=== PATIENT | female | born 1990 | race Hispanic/Latino ===

== ENCOUNTER 2018-08-08 21:40 | Emergency (ER) | payer OTHER ==
[2018-08-08 22:01] VITALS: TEMP 99.2
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
[2018-08-08 23:44] VITALS: BP 130/77; O2SAT 100
== END 2018-08-08 23:44 | disposition home or self-care (01) ==
LOC: ER 21:40
DX: O20.0 Threatened abortion (principal); Z3A.08 8 weeks gestation of pregnancy

== ENCOUNTER 2018-08-28 20:05 | Emergency (ER) | payer OTHER ==
[2018-08-28 20:50] VITALS: TEMP 98.2
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
[2018-08-28] MEDS ORDERED: ACETAMINOPHEN 325 MG TAB PO ONE (20:58)
[2018-08-28 22:35] VITALS: BP 130/79; O2SAT 99
== END 2018-08-28 22:38 | disposition home or self-care (01) ==
LOC: ER 20:05
DX: O99.89 Other specified diseases and conditions complicating pregnancy, childbirth and the puerperium (principal); T74.91XA Unspecified adult maltreatment, confirmed, initial encounter; S00.03XA Contusion of scalp, initial encounter; R42 Dizziness and giddiness; Z3A.11 11 weeks gestation of pregnancy; Y04.0XXA Assault by unarmed brawl or fight, initial encounter; Y07.03 Male partner, perpetrator of maltreatment and neglect

== ENCOUNTER 2019-01-28 09:49 | Emergency (ER) | payer SELFPAY ==
[2019-01-28 10:03] VITALS: BP 122/72; TEMP 95.7; O2SAT 99
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
== END 2019-01-28 10:23 | disposition home or self-care (01) ==
LOC: ER 09:49
DX: O9A.213 Injury, poisoning and certain other consequences of external causes complicating pregnancy, third trimester (principal); S39.012A Strain of muscle, fascia and tendon of lower back, initial encounter; O41.03X0 Oligohydramnios, third trimester, not applicable or unspecified; O24.419 Gestational diabetes mellitus in pregnancy, unspecified control; Z3A.33 33 weeks gestation of pregnancy; X50.9XXA Other and unspecified overexertion or strenuous movements or postures, initial encounter; Y99.0 Civilian activity done for income or pay; Y92.69 Other specified industrial and construction area as the place of occurrence of the external cause; Z79.84 Long term (current) use of oral hypoglycemic drugs

== ENCOUNTER 2020-06-02 12:52 | Emergency (ER) | payer OTHER ==
[2020-06-02] MEDS ORDERED: ONDANSETRON INJ 4 MG/2 ML VIAL IV ONE (13:23)
[2020-06-02] MEDS ORDERED: MORPHINE SULFATE INJ 10 MG/ML VIAL IV ONE (13:23)
[2020-06-02] MEDS ORDERED: SODIUM CHLORIDE 0.9% 1000ML 1,000 ML IVS ONE (13:23)
[2020-06-02] MEDS ORDERED: BETAMETHASONE ACETATE/BETAMETH 6 MG/ML VIAL IM ONE (14:00)
[2020-06-02] MEDS ORDERED: ceFAZolin SODIUM 1 GM VIAL ONE (14:00)
[2020-06-02] MEDS ORDERED: SODIUM CHLORIDE 0.9% 100ML 100 ML IVPB ONE (14:01)
--- NOTE | 2020-06-02 14:07 | ED.PDOC ---
History of Present Illness - General Chief Complaint: DIRECTOR INDUSTRIAL RELATIONS Problem Stated Complaint: thinks she might be having her babies Time Seen by Provider: 06/02/20 13:20 Source: patient Exam Limitations: language barrier - History of Present Illness Initial Comments: Pt reports she had mild diffuse abd pain yesterday, but significantly worsened since 8a this morning. Now the pain has settled into the pelvis. Pt says she feels like she's having ctx's every 30m. Decreased AFM. No vaginal leakage. Pt admits to nausea, but no vomiting or diarrhea. Pt denies cough, congestion, SOB and CP. Pt currently at 32-33wks gestation and this a twin gestation. Dr. Olivas is her DIRECTOR INDUSTRIAL RELATIONS. Pt says has 2 children at home. She reports being on insulin for gestational DM. Timing/Duration: 24 hours Severity: moderate, severe Improving Factors: nothing Worsening Factors: nothing Associated Symptoms: nausea/vomiting Allergies/Adverse Reactions: Allergies NO KNOWN ALLERGY Allergy (Verified 08/28/18 20:50) Home Medications: Ambulatory Orders Vit W/ Ferrous Fumara [] 1 tab PO DAILY 08/08/18 Zhekcjmtlrgwr-Bfra-Ixbvpgrcej [Fioricet] 1 ea PO Q8H PRN #10 tab 01/28/19 RX: Metformin HCl [Metformin Hydrochloride] 250 mg PO .LUNCH 01/28/19 RX: Metformin HCl [Metformin Hydrochloride] 500 mg PO BID 01/28/19 Review of Systems - Review of Systems Constitutional: Denies: chills, diaphoresis, fever EENTM: States: no symptoms reported Respiratory: States: no symptoms reported. Denies: cough, short of breath Cardiology: States: no symptoms reported. Denies: chest pain, palpitations Gastrointestinal/Abdominal: States: abdominal pain, nausea, vomiting. Denies: constipation Genitourinary: States: no symptoms reported. Denies: dysuria, frequency, hematuria Musculoskeletal: States: no symptoms reported Skin: States: no symptoms reported Neurological: States: no symptoms reported Past Medical History (General) - Patient Medical History Hx Seizures: No Hx Stroke: No Hx Dementia: No Hx Asthma: No Hx of COPD: No Hx Cardiac Disorders: No Hx Congestive Heart Failure: No Hx Pacemaker: No Hx Hypertension: No Hx Thyroid Disease: No Hx Diabetes: Yes Hx Gastroesophageal Reflux: No Hx Renal Disease: No Hx Cancer: No Hx of HIV: No Hx Hepatitis C: No Hx MRSA: No - Vaccination History Hx Tetanus, Diphtheria Vaccination: Yes - 2014 Hx Influenza Vaccination: - unknown - Social History Hx Tobacco Use: No - Female History Patient is a Female of Child Bearing Age (10 -59 yrs old): Yes Hx Last Menstrual Period: 06/08/18 Patient : Yes Expected Date of Delivery:: 07/23/20 Hx Gestational Age: 36 Family Medical History - Family History Mother Family History: Unknown Living Status: Unknown Physical Exam - Physical Exam General Appearance: Alert, Obvious distress - mild, Obese Neck: non-tender, full range of motion, supple Respiratory: chest non-tender, lungs clear, normal breath sounds Cardiovascular/Chest: normal peripheral pulses, regular rate, rhythm, no edema, no gallop Gastrointestinal/Abdominal: normal bowel sounds, soft, tenderness - mild pelvic Back Exam: normal inspection, no CVA tenderness, no vertebral tenderness Extremity: normal range of motion, non-tender, normal inspection, no pedal edema Neurologic: alert, normal mood/affect, oriented x 3 Skin Exam: normal color Progress - Progress Progress: 06/02/20 13:40 Bedside US performed. Able to visualize Twin A with nl appearing HR and movement. Unable to locate Twin B likely due to body habitus and baby's position. Cx checked - 8cm, bag intact. Baby warmer turned on. 06/02/20 13:50 D/w Dr. Olivas. He is headed to hospital. 14:10 Dr. Olivas in ER assessing pt. APPRENTICE MACHINIST OUTSIDE present. He was able to locate Twin A and Twin B and able to detect HR of both. Taking to OR now. Pt comfortable appearing, nl vitals. 06/02/20 14:23 Pediatric transport en route. Dr. Olivas in room. He checked cx and now says she is complete. They are awaiting arrival of transport crew before proceeding with deliver. Pt improved with analgesia, vitals stable. 06/02/20 15:29 Twin A and Twin B now delivered. [facility]'s air crew assisting with resuscitation. Both twins with good resp effort and stable. Dr. Olivas still in room with mother and customer support associate. Laboratory Results - last 24 hr 06/02/20 06/02/20 13:29 13:29 WBC 10.1 RBC 4.41 Hgb 12.8 Hct 37.2 MCV 84.3 MCH 29.1 MCHC 34.5 RDW 14.2 Plt Count 176 MPV 9.8 Absolute Neuts (auto) 6.80 Absolute Lymphs (auto) 2.60 Absolute Monos (auto) 0.60 Absolute Eos (auto) 0.00 Absolute Basos (auto) 0.00 Neutrophils % 67.3 Lymphocytes % 25.9 Monocytes % 6.0 Eosinophils % 0.4 L Basophils % 0.4 Sodium 137 Potassium 3.7 Chloride 108 Carbon Dioxide 19 L Anion Gap 13.7 BUN 8 Creatinine 0.57 L BUN/Creatinine Ratio 14.0 Random Glucose 97 Serum Osmolality 272.1 L Calcium 9.2 Total Bilirubin 0.6 AST 20 ALT 16 Alkaline Phosphatase 146 H Serum Total Protein 6.9 Albumin 3.1 L Globulin 3.8 H Albumin/Globulin Ratio 0.8 L 06/02/20 17:00 Twins soon to be en route to [facility]. Dr. Olivas in process of arranging transfer of pt as well. Mother stable at this time. Departure - Departure Clinical Impression: Twin gestation in third trimester, Active labor, 33 weeks gestation of , Gestational diabetes Time of Disposition: 14:13 Disposition: Transfer to Hospital Condition: Fair Departure Forms: ED Discharge - Pt. Copy, Patient Portal Self Enrollment Referrals: Jack Olivas MD [Primary Care Provider] - 1-2 Weeks Home Medications: Ambulatory Orders Vit W/ Ferrous Fumara [] 1 tab PO DAILY 08/08/18 Chzjcwcjpcmwp-Fedt-Goqqyetayu [Fioricet] 1 ea PO Q8H PRN #10 tab 01/28/19 RX: Metformin HCl [Metformin Hydrochloride] 250 mg PO .LUNCH 01/28/19 RX: Metformin HCl [Metformin Hydrochloride] 500 mg PO BID 01/28/19 Transfer to Outside Facility - Transfer Information Decision to Transfer Date: 06/02/20 Decision to Transfer Time: 14:15 Reason for Transfer: required specialist not available Accepting Provider:: Brendon Accepting Facility: [place] [facility]
[2020-06-02] MEDS ORDERED: LACTATED RINGERS 1,000 ML ONE (14:27)
[2020-06-02] MEDS ORDERED: OXYTOCIN INJ 10 UNITS/ML VIAL ONE ×2 (14:29→15:54)
[2020-06-02] MEDS ORDERED: SODIUM CHLORIDE 0.9% 1000ML 1,000 ML ONE ×2 (14:31→15:54)
[2020-06-02] MEDS ORDERED: LIDOCAINE 1% 10 ML VIAL INJ ONE (14:46)
[2020-06-02] MEDS ORDERED: METHYLERGONOVINE MALEATE 0.2 MG/ML VIAL ONE (15:21)
[2020-06-02] MEDS ORDERED: miSOPROStol 100 MCG TAB PO ONE (15:25)
[2020-06-02] MEDS ORDERED: IBUPROFEN 200 MG TAB ONE (17:02)
[2020-06-02] MEDS ORDERED: IBUPROFEN 200 MG TAB PO ONE (17:26)
[2020-06-02] MEDS ORDERED: OXYTOCIN INJ 20 UNITS in SODIUM CHLORIDE 0.9% 1000ML 1,000 ML IV SCH (17:30)
[2020-06-02 17:34] VITALS: TEMP 98.6
[2020-06-02 17:46] VITALS: BP 115/62; O2SAT 99
== END 2020-06-02 17:40 | disposition short-term general hospital (02) ==
LOC: ER 12:52
DX: O30.003 Twin pregnancy, unspecified number of placenta and unspecified number of amniotic sacs, third trimester (principal); O24.424 Gestational diabetes mellitus in childbirth, insulin controlled; Z3A.33 33 weeks gestation of pregnancy; Z37.2 Twins, both liveborn
CPT/HCPCS: 36415; 80053; 85025; J0690; J2270; J2405; J2590; J7030; J7050; J7120